=== PATIENT | female | born 1945 | race Caucasian/White ===

== ENCOUNTER → 2017-02-19 | Outpatient (CLI) | payer MEDICARE ==
[~2017-02-19] MED LIST: ALEGRA PO; ASCO-96 PO; AZEL137S4 NAS; CROM13SP3 NAS; CYAN5000 PO; Calcium PO; ESTR42.53 TP; INSU100V8 SQ; LOSA50TA6 PO; METF10002 PO; MOME17SP NAS; MONT10TA9 PO; MULT-6 PO; SIMV20TA3 PO; UBID100C11 PO
[2017-02-19 12:03] LABS: ASPARTATE AMINO TRANSFERASE 16 U/L (15-37); BLOOD UREA NITROGEN 17 mg/dL (7-18)
== END | disposition home or self-care (01) ==
LOC: STAR 10:38
PROVIDERS: ATTEND Obstetrics & Gynecology Female Pelvic Medicine and Reconstructive Surgery
DX: Z01.818 Encounter for other preprocedural examination (principal); N81.10 Cystocele, unspecified; N81.4 Uterovaginal prolapse, unspecified; N39.46 Mixed incontinence; N81.6 Rectocele
CPT/HCPCS: 36415; 71020; 80053; 84703; 85025; 93005

== ENCOUNTER 2017-03-18 05:39 | Day surgery (SDC) | payer MEDICARE ==
[~2017-03-18] VITALS: Ht 165.1 cm; Wt 56.5 kg
[2017-03-18] MEDS ORDERED: LACTATED RINGERS 1,000 ML IV SCH ×2 (06:23→10:08)
[2017-03-18] MEDS ORDERED: SITA100T PO (06:27)
[2017-03-18 06:29] VITALS: BP 123/79
[2017-03-18] MEDS ORDERED: FLUORESCEIN SODIUM 500 MG/5 ML ONE (06:47)
[2017-03-18] MEDS ORDERED: THROMBIN 5,000 UNIT VIAL TP ONE (06:47)
[2017-03-18] MEDS ORDERED: BUPIVACAINE/PF-EPI 0.25% 1:200K ONE (06:47)
[2017-03-18] MEDS ORDERED: SILVER NITRATE STICK TP ONE (06:48)
[2017-03-18] MEDS ORDERED: NEOMY/POLYMYXIN B GU IRR. 1 ML IRRIG ONE ×2 (06:48→08:47)
[2017-03-18] MEDS ORDERED: FENTANYL PF 250 MCG/5ML ONE (07:21)
[2017-03-18] MEDS ORDERED: LABETALOL 5MG/ML, 20ML IV PRN (07:30)
[2017-03-18] MEDS ORDERED: ONDANSETRON 2MG/ML, 2ML IVPush PRN ×2 (07:30→10:30)
[2017-03-18] MEDS ORDERED: HYDROmorphone 1 MG/ML, 1ML IV PRN (07:30)
[2017-03-18] MEDS ORDERED: HYDROcodone/APAP 7.5-325MG/15ML UDC PO PRN (07:30)
[2017-03-18] MEDS ORDERED: PROMETHAZINE 25 MG/ML, 1ML IV PRN (07:30)
[2017-03-18] MEDS ORDERED: OXYcodone 5 MG/5 ML ORAL.SOL UDC PO PRN (07:30)
[2017-03-18] MEDS ORDERED: ACETAMINOPHEN 325 MG TABLET PO PRN (07:30)
[2017-03-18] MEDS ORDERED: hydrALAzine 20 MG/ML, 1ML IV PRN (07:30)
[2017-03-18] MEDS ORDERED: EPHEDRINE 50 MG/ML, 1ML IVPush PRN (07:30)
[2017-03-18] MEDS ORDERED: ONDANSETRON 2MG/ML, 2ML ONE ×2 (07:31→10:26)
[2017-03-18] MEDS ORDERED: PHENYLEPHRINE 10 MG/ML ONE (07:31)
[2017-03-18] MEDS ORDERED: GLYCOPYRROLATE 0.2MG/1ML ONE (07:31)
[2017-03-18] MEDS ORDERED: PROPOFOL 10 MG/ML, 20ML ONE (07:31)
[2017-03-18] MEDS ORDERED: KETOROLAC 30 MG/1 ML ONE (07:31)
[2017-03-18] MEDS ORDERED: CEFOTETAN 2 GM ONE (07:31)
[2017-03-18] MEDS ORDERED: ROCURONIUM 10 MG/ML ONE (07:31)
[2017-03-18] MEDS ORDERED: NEOSTIGMINE 1 MG/ML, 10ML ONE (07:31)
[2017-03-18] MEDS ORDERED: BUPIVACAINE/PF-EPI 0.25% 1:200K INFIL ONE (08:41)
[2017-03-18] MEDS ORDERED: INSULIN SINGLE DOSE, ER SQ-INSULIN ONE (10:10)
[2017-03-18] MEDS ORDERED: OXYcodone 5 MG/5 ML ORAL.SOL UDC ONE (10:26)
[2017-03-18] MEDS ORDERED: FENTANYL PF 100 MCG/2ML ONE (10:27)
[2017-03-18] MEDS ORDERED: IBUPROFEN 600 MG TABLET PO PRN (10:30)
[2017-03-18] MEDS ORDERED: PROMETHAZINE 12.5 MG SUPP PR ONE (10:30)
[2017-03-18] MEDS: FENTANYL PF 100 MCG/2ML IV PRN ×2 (10:30→10:41)
[2017-03-18] MEDS ORDERED: HYDROcodone/APAP 5/325 TABLET PO PRN (10:30)
== END 2017-03-18 16:10 | disposition home or self-care (01) ==
LOC: OUT 05:39
PROVIDERS: ATTEND Obstetrics & Gynecology Female Pelvic Medicine and Reconstructive Surgery
DX: D25.1 Intramural leiomyoma of uterus (principal); N81.4 Uterovaginal prolapse, unspecified; D26.1 Other benign neoplasm of corpus uteri; N83.311 Acquired atrophy of right ovary; N83.312 Acquired atrophy of left ovary; R35.0 Frequency of micturition; R35.1 Nocturia; I10 Essential (primary) hypertension; E11.9 Type 2 diabetes mellitus without complications; E78.5 Hyperlipidemia, unspecified; Z88.6 Allergy status to analgesic agent; Z88.8 Allergy status to other drugs, medicaments and biological substances; Z88.7 Allergy status to serum and vaccine; J45.909 Unspecified asthma, uncomplicated; M85.80 Other specified disorders of bone density and structure, unspecified site; Z98.890 Other specified postprocedural states; Z79.84 Long term (current) use of oral hypoglycemic drugs
CPT/HCPCS: 57288; 57425; 58542; 82962; 88307; C1771; C1781; J1885; J2370; J2405; J2704; J2710; J3010; J3490; J7120; S0074

== ENCOUNTER 2017-03-21 07:32 | Inpatient (IN) | payer MEDICARE ==
[~2017-03-21] VITALS: Ht 167.6 cm; Wt 52.2 kg
[~2017-03-21 07:32] MED LIST changes: +SITA100T PO
[2017-03-21] MEDS ORDERED: SODIUM CHLORIDE 0.9% 1,000 ML IV ONE (07:40)
[2017-03-21] MEDS ORDERED: HYDR-3138 PO (07:51)
[2017-03-21] MEDS ORDERED: NITR100C PO (07:51)
[2017-03-21] MEDS ORDERED: ONDA4TAB7 PO (07:51)
[2017-03-21] MEDS ORDERED: HYDROmorphone 1 MG/ML, 1ML ONE (07:58)
[2017-03-21] MEDS ORDERED: ONDANSETRON 2MG/ML, 2ML ONE (07:59)
[2017-03-21] MEDS ORDERED: SODIUM CHLORIDE FLUSH 10ML SYR IVF ONE (08:00)
[2017-03-21] MEDS ORDERED: ONDANSETRON 2MG/ML, 2ML IVPush ONE (08:00)
[2017-03-21] MEDS ORDERED: SODIUM CHLORIDE 0.9% 1,000ML IVBOLUS ONE (08:00)
[2017-03-21] MEDS ORDERED: HYDROmorphone 1 MG/ML, 1ML IVPush PRN (08:00)
[2017-03-21 08:56] LABS: PATH.CAST-FLAG NOT PRESENT; SPERM-FLAG NOT PRESENT; SRC-FLAG NOT PRESENT; XTAL-FLAG NOT PRESENT; YLC-FLAG NOT PRESENT
[2017-03-21 08:57] LABS: BLOOD UREA NITROGEN 7 mg/dL (7-18)
[2017-03-21 09:02] LABS: ASPARTATE AMINO TRANSFERASE 23 U/L (15-37)
[2017-03-21] MEDS ORDERED: OMNIPAQUE 350 MG/ML, 100ML BOTTLE ONE (10:16)
[2017-03-21] MEDS ORDERED: ONDANSETRON 2MG/ML, 2ML IVPush PRN (11:00)
[2017-03-21] MEDS ORDERED: BISACODYL 10 MG SUPP PR PRN (11:00)
[2017-03-21] MEDS ORDERED: ACETAMINOPHEN 325 MG TABLET PO PRN (11:00)
[2017-03-21] MEDS ORDERED: METOCLOPRAMIDE 5 MG/ML, 2ML IVPush PRN (11:00)
[2017-03-21] MEDS ORDERED: ZOLPIDEM 5MG TABLET PO PRN (11:00)
[2017-03-21] MEDS ORDERED: SODIUM CHLORIDE FLUSH 10ML SYR IVF PRN (11:00)
[2017-03-21] MEDS: ESTRADIOL 0.1 MG TP SCH (11:30)
[2017-03-21] MEDS ORDERED: GLUCAGON 1 MG IM PRN (11:30)
[2017-03-21] MEDS ORDERED: DEXTROSE 50%, 50ML SYRINGE IVPush PRN (11:30)
[2017-03-21] MEDS ORDERED: DEXTROSE 4 GM TAB.CHEW PO PRN (11:30)
[2017-03-21 11:40] VITALS: BP 175/85
[2017-03-21 12:32] VITALS: BP 175/85
[2017-03-21 13:23] LABS: BLOOD UREA NITROGEN 5 mg/dL (7-18)
[2017-03-21] MEDS: POTASSIUM CHLORIDE 20 MEQ in SODIUM CHLORIDE 0.9% 1,000 ML IV SCH ×2 (13:34→22:24)
[2017-03-21] MEDS: INSULIN ASPART 100 UNITS/ML, PEN SQ-INSULIN SCH ×2 (13:35→20:00)
[2017-03-21] MEDS: hydrALAzine 20 MG/ML, 1ML IVPush PRN (13:49)
[2017-03-21 14:01] VITALS: BP 178/77
[2017-03-21] MEDS: PROMETHAZINE 25 MG/ML, 1ML IM PRN ×3 (14:27→20:48)
[2017-03-21 16:58] LABS: POTASSIUM,URINE RANDOM 6 mmol/L
[2017-03-21 19:25] VITALS: BP 160/74
[2017-03-21] MEDS: ENOXAPARIN 40 MG/0.4 ML SQ SCH (20:26)
[2017-03-21] MEDS: LOSARTAN 50MG TABLET PO SCH (20:26)
[2017-03-21] MEDS: SODIUM CHLORIDE FLUSH 10ML SYR IVF SCH (22:24)
[2017-03-21] MEDS: HYDROmorphone 2 MG/ML, 1ML IVPush PRN (22:41)
[2017-03-22 03:01] VITALS: BP 143/69
[2017-03-22] MEDS: HYDROmorphone 2 MG/ML, 1ML IVPush PRN ×2 (05:15→23:47)
[2017-03-22] MEDS: PROMETHAZINE 25 MG/ML, 1ML IM PRN ×2 (05:15→23:48)
[2017-03-22 05:20] LABS: BLOOD UREA NITROGEN 8 mg/dL (7-18)
[2017-03-22] MEDS: INSULIN ASPART 100 UNITS/ML, PEN SQ-INSULIN SCH ×4 (05:47→23:50)
[2017-03-22] MEDS: POTASSIUM CHLORIDE 20 MEQ in SODIUM CHLORIDE 0.9% 1,000 ML IV SCH ×3 (05:50→23:51)
[2017-03-22 08:28] VITALS: BP 149/71
[2017-03-22] MEDS: SODIUM CHLORIDE FLUSH 10ML SYR IVF SCH ×2 (09:00→21:41)
[2017-03-22] MEDS ORDERED: POTASSIUM PHOSPHATE 44 MEQ in SODIUM CHLORIDE 0.9% 500 ML IV ONE (09:00)
[2017-03-22] MEDS: ESTRADIOL 0.1 MG TP SCH (09:00)
[2017-03-22] MEDS: BISACODYL 10 MG SUPP PR SCH (10:51)
[2017-03-22] MEDS: METOCLOPRAMIDE 5 MG/ML, 2ML IVPush SCH ×3 (10:51→23:49)
[2017-03-22 14:14] VITALS: BP 133/91
[2017-03-22 19:34] VITALS: BP 162/76
[2017-03-22] MEDS: ENOXAPARIN 40 MG/0.4 ML SQ SCH (21:42)
[2017-03-22] MEDS: LOSARTAN 50MG TABLET PO SCH (21:42)
[2017-03-23 03:44] VITALS: BP 143/70
[2017-03-23] MEDS: METOCLOPRAMIDE 5 MG/ML, 2ML IVPush SCH ×4 (05:38→23:39)
[2017-03-23 05:42] LABS: BLOOD UREA NITROGEN 11 mg/dL (7-18)
[2017-03-23] MEDS: POTASSIUM CHLORIDE 20 MEQ in SODIUM CHLORIDE 0.9% 1,000 ML IV SCH ×2 (06:13→08:45)
[2017-03-23] MEDS: HYDROmorphone 2 MG/ML, 1ML IVPush PRN ×3 (06:20→21:00)
[2017-03-23] MEDS: INSULIN ASPART 100 UNITS/ML, PEN SQ-INSULIN SCH ×4 (08:41→23:53)
[2017-03-23 08:42] VITALS: BP 152/76
[2017-03-23] MEDS: SODIUM CHLORIDE FLUSH 10ML SYR IVF SCH ×2 (08:45→21:00)
[2017-03-23] MEDS: ESTRADIOL 0.1 MG TP SCH (08:46)
[2017-03-23] MEDS: BISACODYL 10 MG SUPP PR SCH (09:34)
[2017-03-23] MEDS: LACTATED RINGERS 1,000 ML IV SCH ×2 (10:26→21:00)
[2017-03-23 14:02] VITALS: BP 160/75
[2017-03-23 18:23] VITALS: BP 164/70
[2017-03-23] MEDS: LOSARTAN 50MG TABLET PO SCH (21:00)
[2017-03-23] MEDS: ENOXAPARIN 40 MG/0.4 ML SQ SCH (21:09)
[2017-03-23] MEDS: PROMETHAZINE 25 MG/ML, 1ML IM PRN (21:09)
[2017-03-24 02:07] VITALS: BP 152/84
[2017-03-24] MEDS: HYDROmorphone 2 MG/ML, 1ML IVPush PRN ×3 (03:47→09:55)
[2017-03-24] MEDS: LACTATED RINGERS 1,000 ML IV SCH ×2 (05:26→22:14)
[2017-03-24] MEDS: INSULIN ASPART 100 UNITS/ML, PEN SQ-INSULIN SCH ×3 (05:27→18:13)
[2017-03-24] MEDS: METOCLOPRAMIDE 5 MG/ML, 2ML IVPush SCH (05:27)
[2017-03-24 05:56] LABS: BLOOD UREA NITROGEN 11 mg/dL (7-18)
[2017-03-24] MEDS: ESTRADIOL 0.1 MG TP SCH (09:00)
[2017-03-24] MEDS: PROMETHAZINE 25 MG/ML, 1ML IM PRN (09:54)
[2017-03-24] MEDS: SODIUM CHLORIDE FLUSH 10ML SYR IVF SCH (09:55)
[2017-03-24] MEDS: BISACODYL 10 MG SUPP PR SCH (09:55)
[2017-03-24 10:03] VITALS: BP 162/73
[2017-03-24] MEDS ORDERED: FENTANYL PF 250 MCG/5ML ONE (13:08)
[2017-03-24] MEDS ORDERED: MIDAZOLAM 1 MG/ML, 2ML ONE (13:08)
[2017-03-24] MEDS ORDERED: SUCCINYLCHOLINE 20 MG/ML, 10ML ONE (13:26)
[2017-03-24] MEDS ORDERED: NEOSTIGMINE 1 MG/ML, 10ML ONE (13:26)
[2017-03-24] MEDS ORDERED: KETOROLAC 30 MG/1 ML ONE (13:26)
[2017-03-24] MEDS ORDERED: ROCURONIUM 10 MG/ML ONE (13:26)
[2017-03-24] MEDS ORDERED: DEXAMETHASONE 4 MG/ML, 1ML ONE (13:26)
[2017-03-24] MEDS ORDERED: CEFOTETAN 1 GM ONE (13:26)
[2017-03-24] MEDS ORDERED: PROPOFOL 10 MG/ML, 20ML ONE (13:26)
[2017-03-24] MEDS ORDERED: GLYCOPYRROLATE 0.2MG/1ML ONE (13:26)
[2017-03-24] MEDS ORDERED: OXYMETAZOLINE NASAL SPRAY 0.05%, 15ML ONE (13:46)
[2017-03-24] MEDS ORDERED: HYDROmorphone 1 MG/ML, 1ML ONE ×2 (13:56→14:57)
[2017-03-24] MEDS ORDERED: FENTANYL PF 100 MCG/2ML ONE ×2 (13:56→14:57)
[2017-03-24] MEDS ORDERED: ROPIvacaine/PF 0.2%, 20 ML ONE (14:12)
[2017-03-24] MEDS ORDERED: ALBUTEROL SULFATE 2.5 MG/3 ML NPPB PRN (15:00)
[2017-03-24] MEDS ORDERED: ACETAMINOPHEN 325 MG TABLET PO PRN (15:00)
[2017-03-24] MEDS ORDERED: PROMETHAZINE 25 MG/ML, 1ML IV PRN (15:00)
[2017-03-24] MEDS ORDERED: METOPROLOL 1 MG/ML, 5ML IV PRN (15:00)
[2017-03-24] MEDS ORDERED: FENTANYL PF 100 MCG/2ML IV PRN (15:00)
[2017-03-24] MEDS ORDERED: hydrALAzine 20 MG/ML, 1ML IV PRN (15:00)
[2017-03-24] MEDS ORDERED: HYDROmorphone 1 MG/ML, 1ML IV PRN (15:00)
[2017-03-24] MEDS ORDERED: OXYcodone 5 MG/5 ML ORAL.SOL UDC PO PRN (15:00)
[2017-03-24 16:10] VITALS: BP 146/71
[2017-03-24 16:15] VITALS: BP 146/71
[2017-03-24 19:13] VITALS: BP 126/64
[2017-03-24] MEDS ORDERED: DEXTROSE 4 GM TAB.CHEW PO PRN (22:00)
[2017-03-24] MEDS ORDERED: DEXTROSE 50%, 50ML SYRINGE IVPush PRN (22:00)
[2017-03-24] MEDS ORDERED: GLUCAGON 1 MG IM PRN (22:00)
[2017-03-24] MEDS: KETOROLAC 30 MG/1 ML IV SCH (22:14)
[2017-03-24] MEDS: ENOXAPARIN 40 MG/0.4 ML SQ SCH (22:15)
[2017-03-25] VITALS (7 sets, daily range): BP systolic 101–124; BP diastolic 55–74
[2017-03-25] MEDS: KETOROLAC 30 MG/1 ML IV SCH ×4 (04:01→23:54)
[2017-03-25] MEDS: INSULIN ASPART 100 UNITS/ML, PEN SQ-INSULIN SCH ×5 (06:00→23:55)
[2017-03-25 06:06] LABS: BLOOD UREA NITROGEN 17 mg/dL (7-18)
[2017-03-25 06:09] LABS: ASPARTATE AMINO TRANSFERASE 13 U/L (15-37)
[2017-03-25] MEDS ORDERED: SODIUM CHLORIDE 0.9% 500 ML IV SCH ×2 (07:10→07:30)
[2017-03-25] MEDS ORDERED: PHENOL THROAT SPRAY BOTTLE MM PRN (08:00)
[2017-03-25] MEDS ORDERED: BENZOCAINE AEROSOL SPRAY 20%, 60ML TP ONE (08:00)
[2017-03-25] MEDS: SODIUM CHLORIDE FLUSH 10ML SYR IVF SCH ×2 (09:14→20:47)
[2017-03-25] MEDS: ESTRADIOL 0.1 MG TP SCH (09:15)
[2017-03-25] MEDS: LACTATED RINGERS 1,000 ML IV SCH ×3 (09:42→20:46)
[2017-03-25] MEDS: BISACODYL 10 MG SUPP PR SCH (09:43)
[2017-03-25] MEDS ORDERED: SODIUM CHLORIDE 0.9%, 500ML IVBOLUS ONE (18:00)
[2017-03-25] MEDS: ENOXAPARIN 40 MG/0.4 ML SQ SCH (20:46)
[2017-03-25] MEDS: PROMETHAZINE 25 MG/ML, 1ML IM PRN (20:47)
[2017-03-26 04:10] VITALS: BP 136/68
[2017-03-26 06:13] LABS: BLOOD UREA NITROGEN 18 mg/dL (7-18)
[2017-03-26] MEDS: KETOROLAC 30 MG/1 ML IV SCH ×3 (06:47→17:55)
[2017-03-26] MEDS: LACTATED RINGERS 1,000 ML IV SCH ×2 (06:54→15:26)
[2017-03-26] MEDS: INSULIN ASPART 100 UNITS/ML, PEN SQ-INSULIN SCH ×3 (06:54→17:58)
[2017-03-26 08:17] VITALS: BP 118/67
[2017-03-26] MEDS: ESTRADIOL 0.1 MG TP SCH (08:42)
[2017-03-26] MEDS: SODIUM CHLORIDE FLUSH 10ML SYR IVF SCH ×2 (08:53→20:17)
[2017-03-26] MEDS: METOCLOPRAMIDE 5 MG/ML, 2ML IVPush SCH ×3 (08:53→20:17)
[2017-03-26] MEDS: BISACODYL 10 MG SUPP PR SCH (08:53)
[2017-03-26 12:24] VITALS: BP 124/59
[2017-03-26] MEDS: ENOXAPARIN 40 MG/0.4 ML SQ SCH (20:16)
[2017-03-26 20:20] VITALS: BP 136/67
[2017-03-27] MEDS: KETOROLAC 30 MG/1 ML IV SCH ×4 (00:11→17:19)
[2017-03-27] MEDS: INSULIN ASPART 100 UNITS/ML, PEN SQ-INSULIN SCH ×4 (00:14→18:00)
[2017-03-27] MEDS: LACTATED RINGERS 1,000 ML IV SCH ×3 (00:25→17:19)
[2017-03-27] MEDS: PROMETHAZINE 25 MG/ML, 1ML IM PRN (00:41)
[2017-03-27] MEDS: METOCLOPRAMIDE 5 MG/ML, 2ML IVPush SCH ×4 (02:30→21:06)
[2017-03-27 02:39] VITALS: BP 124/66
[2017-03-27 07:49] VITALS: BP 139/53
[2017-03-27] MEDS: SODIUM CHLORIDE FLUSH 10ML SYR IVF SCH ×2 (09:00→20:44)
[2017-03-27] MEDS: ESTRADIOL 0.1 MG TP SCH (09:00)
[2017-03-27] MEDS: BISACODYL 10 MG SUPP PR SCH (10:31)
[2017-03-27 12:58] VITALS: BP 157/71
[2017-03-27 20:20] VITALS: BP 148/66
[2017-03-27] MEDS: DIPHENHYDRAMINE 50 MG/ML, 1ML IVPush PRN (20:44)
[2017-03-27] MEDS: ENOXAPARIN 40 MG/0.4 ML SQ SCH (20:44)
[2017-03-28] MEDS: INSULIN ASPART 100 UNITS/ML, PEN SQ-INSULIN SCH ×5 (00:29→23:23)
[2017-03-28 03:09] VITALS: BP 158/70
[2017-03-28] MEDS: LACTATED RINGERS 1,000 ML IV SCH ×2 (04:47→14:54)
[2017-03-28] MEDS: METOCLOPRAMIDE 5 MG/ML, 2ML IVPush SCH ×4 (04:47→23:11)
[2017-03-28 08:09] LABS: ASPARTATE AMINO TRANSFERASE 18 U/L (15-37); BLOOD UREA NITROGEN 7 mg/dL (7-18)
[2017-03-28 08:30] VITALS: BP 156/76
[2017-03-28] MEDS: ESTRADIOL 0.1 MG TP SCH (09:00)
[2017-03-28] MEDS: SODIUM CHLORIDE FLUSH 10ML SYR IVF SCH ×2 (09:47→21:00)
[2017-03-28] MEDS: BISACODYL 10 MG SUPP PR SCH (09:47)
[2017-03-28 14:30] VITALS: BP 169/76
[2017-03-28 20:16] VITALS: BP 176/74
[2017-03-28] MEDS: ENOXAPARIN 40 MG/0.4 ML SQ SCH (23:10)
[2017-03-29] MEDS: LACTATED RINGERS 1,000 ML IV SCH (01:19)
[2017-03-29 01:25] VITALS: BP 168/80
[2017-03-29] MEDS: METOCLOPRAMIDE 5 MG/ML, 2ML IVPush SCH ×4 (05:33→23:41)
[2017-03-29] MEDS: INSULIN ASPART 100 UNITS/ML, PEN SQ-INSULIN SCH ×4 (06:00→21:00)
[2017-03-29 06:34] VITALS: BP 171/88
[2017-03-29] MEDS: ESTRADIOL 0.1 MG TP SCH (09:00)
[2017-03-29] MEDS: SODIUM CHLORIDE FLUSH 10ML SYR IVF SCH ×2 (09:00→21:50)
[2017-03-29] MEDS: BISACODYL 10 MG SUPP PR SCH (10:02)
[2017-03-29 12:25] VITALS: BP 157/76
[2017-03-29] MEDS: OXYcodone IR 5MG TABLET PO PRN ×2 (15:09→21:51)
[2017-03-29] MEDS: PROMETHAZINE 25 MG/ML, 1ML IM PRN ×2 (17:11→22:01)
[2017-03-29] MEDS: HYDROmorphone 2 MG/ML, 1ML IVPush PRN (17:49)
[2017-03-29 20:19] VITALS: BP 165/67
[2017-03-29] MEDS: ENOXAPARIN 40 MG/0.4 ML SQ SCH (21:51)
[2017-03-30] MEDS: OXYcodone IR 5MG TABLET PO PRN ×5 (02:46→20:42)
[2017-03-30] MEDS: PROMETHAZINE 25 MG/ML, 1ML IM PRN ×4 (03:05→20:42)
[2017-03-30 03:51] VITALS: BP 166/88
[2017-03-30] MEDS: METOCLOPRAMIDE 5 MG/ML, 2ML IVPush SCH ×4 (05:05→23:20)
[2017-03-30 06:50] VITALS: BP 165/74
[2017-03-30] MEDS: INSULIN ASPART 100 UNITS/ML, PEN SQ-INSULIN SCH ×4 (08:28→23:32)
[2017-03-30] MEDS: ESTRADIOL 0.1 MG TP SCH (09:00)
[2017-03-30] MEDS: SODIUM CHLORIDE FLUSH 10ML SYR IVF SCH ×2 (09:00→20:44)
[2017-03-30 13:09] VITALS: BP 166/72
[2017-03-30] MEDS: BISACODYL 10 MG SUPP PR SCH (15:42)
[2017-03-30 18:57] VITALS: BP 162/62
[2017-03-30] MEDS: ENOXAPARIN 40 MG/0.4 ML SQ SCH (20:42)
[2017-03-31 03:19] VITALS: BP 162/78
[2017-03-31] MEDS: INSULIN ASPART 100 UNITS/ML, PEN SQ-INSULIN SCH ×4 (05:00→23:02)
[2017-03-31] MEDS: METOCLOPRAMIDE 5 MG/ML, 2ML IVPush SCH ×4 (05:38→22:55)
[2017-03-31] MEDS: PROMETHAZINE 25 MG/ML, 1ML IM PRN ×3 (05:39→20:19)
[2017-03-31] MEDS: OXYcodone IR 5MG TABLET PO PRN (05:39)
[2017-03-31 06:58] VITALS: BP 167/69
[2017-03-31] MEDS: ESTRADIOL 0.1 MG TP SCH (07:20)
[2017-03-31] MEDS ORDERED: D5%-0.9% NACL+KCL 20MEQ 1,000 ML IV SCH (07:30)
[2017-03-31 08:23] LABS: BLOOD UREA NITROGEN 6 mg/dL (7-18)
[2017-03-31 08:26] LABS: ASPARTATE AMINO TRANSFERASE 37 U/L (15-37)
[2017-03-31] MEDS: SODIUM CHLORIDE FLUSH 10ML SYR IVF SCH ×3 (09:30→22:42)
[2017-03-31] MEDS: NS + 20MEQ KCL 1,000 ML IV SCH (10:07)
[2017-03-31] MEDS: BISACODYL 10 MG SUPP PR SCH (10:12)
[2017-03-31] MEDS ORDERED: POTASSIUM CHLORIDE 40 MEQ in SODIUM CHLORIDE 0.9% 500 ML IV ONE (11:30)
[2017-03-31] MEDS: ENALAPRIL 5MG TABLET PO SCH ×3 (12:51→22:45)
[2017-03-31 13:37] VITALS: BP 155/72
[2017-03-31] MEDS: LOSARTAN 50MG TABLET PO SCH (14:17)
[2017-03-31 19:56] VITALS: BP 165/83
[2017-03-31] MEDS: ENOXAPARIN 40 MG/0.4 ML SQ SCH (20:19)
[2017-03-31] MEDS: DIPHENHYDRAMINE 50 MG/ML, 1ML IVPush PRN (22:42)
[2017-04-01] MEDS: HYDROmorphone 2 MG/ML, 1ML IVPush PRN (00:56)
[2017-04-01 05:01] VITALS: BP 160/68
[2017-04-01 05:40] LABS: BLOOD UREA NITROGEN 7 mg/dL (7-18)
[2017-04-01] MEDS: METOCLOPRAMIDE 5 MG/ML, 2ML IVPush SCH ×4 (06:30→18:22)
[2017-04-01] MEDS: INSULIN ASPART 100 UNITS/ML, PEN SQ-INSULIN SCH ×4 (06:40→20:44)
[2017-04-01] MEDS: NS + 20MEQ KCL 1,000 ML IV SCH ×2 (07:35→13:25)
[2017-04-01 08:28] VITALS: BP 155/76
[2017-04-01] MEDS: SODIUM CHLORIDE FLUSH 10ML SYR IVF SCH ×2 (09:00→19:59)
[2017-04-01] MEDS: ESTRADIOL 0.1 MG TP SCH (09:00)
[2017-04-01] MEDS: BISACODYL 10 MG SUPP PR SCH (09:00)
[2017-04-01] MEDS: LOSARTAN 50MG TABLET PO SCH ×2 (09:00→13:26)
[2017-04-01 13:13] VITALS: BP_SYST 170; BP_SYST 172; BP_DIAS 78; BP_DIAS 79
[2017-04-01 18:52] VITALS: BP 177/71
[2017-04-01] MEDS: DIPHENHYDRAMINE 50 MG/ML, 1ML IVPush PRN (19:59)
[2017-04-01] MEDS: ENALAPRIL 5MG TABLET PO SCH ×2 (20:00→20:09)
[2017-04-01] MEDS: ENOXAPARIN 40 MG/0.4 ML SQ SCH (20:00)
[2017-04-01] MEDS: hydrALAzine 20 MG/ML, 1ML IVPush PRN (20:21)
[2017-04-02] MEDS: METOCLOPRAMIDE 5 MG/ML, 2ML IVPush SCH ×4 (00:05→18:33)
[2017-04-02] MEDS: NS + 20MEQ KCL 1,000 ML IV SCH ×2 (01:02→03:22)
[2017-04-02 01:33] VITALS: BP 152/77
[2017-04-02] MEDS: INSULIN ASPART 100 UNITS/ML, PEN SQ-INSULIN SCH ×4 (03:40→23:09)
[2017-04-02] MEDS: PROMETHAZINE 25 MG SUPP PR PRN ×2 (05:46→23:09)
[2017-04-02] MEDS ORDERED: TPN PER PHARMACY MC PRN (07:00)
[2017-04-02 07:01] VITALS: BP 164/70
[2017-04-02] MEDS: SODIUM CHLORIDE FLUSH 10ML SYR IVF SCH ×2 (07:18→19:52)
[2017-04-02] MEDS: ESTRADIOL 0.1 MG TP SCH (07:19)
[2017-04-02 08:14] LABS: ASPARTATE AMINO TRANSFERASE 26 U/L (15-37); BLOOD UREA NITROGEN 8 mg/dL (7-18)
[2017-04-02] MEDS: LOSARTAN 50MG TABLET PO SCH (08:49)
[2017-04-02] MEDS: BISACODYL 10 MG SUPP PR SCH (08:50)
[2017-04-02] MEDS: ENALAPRIL 5MG TABLET PO SCH ×2 (08:51→19:53)
[2017-04-02 12:42] VITALS: BP 164/74
[2017-04-02] MEDS ORDERED: SODIUM CHLORIDE 0.9% 1,000 ML IV SCH (14:10)
[2017-04-02] MEDS ORDERED: AMINO ACID 10% IV SCH (17:00)
[2017-04-02] MEDS ORDERED: FAT EMULSIONS IV SCH (17:00)
[2017-04-02] MEDS ORDERED: [UNRECOGNIZED DRUG - OTHER] IV SCH (17:00)
[2017-04-02] MEDS ORDERED: FILTER, DISP 1.2 MICRON FOR TPN/PVN IV PRN (17:00)
[2017-04-02] MEDS ORDERED: DEXTROSE 10% 500 ML IV PRN (17:00)
[2017-04-02] MEDS ORDERED: DEXTROSE 70% IV SCH (17:00)
[2017-04-02 19:39] VITALS: BP 177/73
[2017-04-02] MEDS: ENOXAPARIN 40 MG/0.4 ML SQ SCH (19:53)
[2017-04-02] MEDS: hydrALAzine 20 MG/ML, 1ML IVPush PRN (19:53)
[2017-04-02] MEDS: DIPHENHYDRAMINE 50 MG/ML, 1ML IVPush PRN (23:09)
[2017-04-03] MEDS: METOCLOPRAMIDE 5 MG/ML, 2ML IVPush SCH ×4 (00:41→18:30)
[2017-04-03 01:13] VITALS: BP 151/67
[2017-04-03] MEDS: INSULIN ASPART 100 UNITS/ML, PEN SQ-INSULIN SCH ×3 (03:00→09:00)
[2017-04-03 05:13] LABS: BLOOD UREA NITROGEN 9 mg/dL (7-18)
[2017-04-03 08:11] VITALS: BP 153/71
[2017-04-03] MEDS: ENALAPRIL 5MG TABLET PO SCH ×2 (09:00→21:00)
[2017-04-03] MEDS: ESTRADIOL 0.1 MG TP SCH (09:00)
[2017-04-03] MEDS: SODIUM CHLORIDE FLUSH 10ML SYR IVF SCH ×2 (09:36→22:53)
[2017-04-03] MEDS: LOSARTAN 50MG TABLET PO SCH (09:37)
[2017-04-03] MEDS ORDERED: INSULIN REGULAR, HUMAN 100 UNITS/ML, 3ML HIGH DOSE SS SQ-INSULIN SCH (11:00)
[2017-04-03] MEDS: INSULIN ASPART 100 UNITS/ML, 3ML PEN HIGH DOSE SS SQ-INSULIN SCH ×3 (11:08→22:56)
[2017-04-03] MEDS: PIPERACILLIN/TAZO/PMX 3.375GM 50 ML IV SCH ×2 (14:27→22:53)
[2017-04-03] MEDS ORDERED: PIPERACILLIN/TAZO 3.375 GM in SODIUM CHLORIDE 0.9% 50 ML IV SCH (14:30)
[2017-04-03 14:57] VITALS: BP 175/75
[2017-04-03] MEDS ORDERED: INSULIN ASPART 100 UNITS/ML, PEN SQ-INSULIN SCH (16:00)
[2017-04-03] MEDS ORDERED: DEXTROSE 70% IV SCH ×2 (17:00)
[2017-04-03] MEDS ORDERED: [UNRECOGNIZED DRUG - OTHER] IV SCH ×2 (17:00)
[2017-04-03] MEDS ORDERED: FAT EMULSIONS IV SCH ×2 (17:00)
[2017-04-03] MEDS ORDERED: AMINO ACID 10% IV SCH ×2 (17:00)
[2017-04-03] MEDS: FILTER, DISP 1.2 MICRON FOR TPN/PVN IV PRN (18:11)
[2017-04-03 19:48] VITALS: BP 146/68
[2017-04-03] MEDS: DIPHENHYDRAMINE 50 MG/ML, 1ML IVPush PRN (21:18)
[2017-04-03] MEDS: ENOXAPARIN 40 MG/0.4 ML SQ SCH (21:18)
[2017-04-04] MEDS: METOCLOPRAMIDE 5 MG/ML, 2ML IVPush SCH ×5 (00:30→23:51)
[2017-04-04 03:57] VITALS: BP 133/70
[2017-04-04] MEDS: INSULIN ASPART 100 UNITS/ML, 3ML PEN HIGH DOSE SS SQ-INSULIN SCH ×4 (06:11→22:52)
[2017-04-04] MEDS: PIPERACILLIN/TAZO/PMX 3.375GM 50 ML IV SCH ×3 (06:37→22:48)
[2017-04-04 07:10] LABS: BLOOD UREA NITROGEN 13 mg/dL (7-18)
[2017-04-04 07:12] VITALS: BP 131/65
[2017-04-04] MEDS: SODIUM CHLORIDE FLUSH 10ML SYR IVF SCH ×2 (08:05→21:47)
[2017-04-04] MEDS: LOSARTAN 50MG TABLET PO SCH (08:05)
[2017-04-04] MEDS: ENALAPRIL 5MG TABLET PO SCH ×2 (08:05→21:47)
[2017-04-04] MEDS: ESTRADIOL 0.1 MG TP SCH (08:05)
[2017-04-04 14:10] VITALS: BP 122/66
[2017-04-04] MEDS ORDERED: [UNRECOGNIZED DRUG - OTHER] IV SCH (17:00)
[2017-04-04] MEDS ORDERED: DEXTROSE 70% IV SCH (17:00)
[2017-04-04] MEDS ORDERED: AMINO ACID 10% IV SCH (17:00)
[2017-04-04] MEDS ORDERED: FAT EMULSIONS IV SCH (17:00)
[2017-04-04] MEDS: FILTER, DISP 1.2 MICRON FOR TPN/PVN IV PRN (17:24)
[2017-04-04 19:57] VITALS: BP_SYST 144; BP_SYST 160; BP_DIAS 70
[2017-04-04] MEDS: DIPHENHYDRAMINE 50 MG/ML, 1ML IVPush PRN (21:46)
[2017-04-04] MEDS: ENOXAPARIN 40 MG/0.4 ML SQ SCH (21:46)
[2017-04-05 02:05] VITALS: BP 156/77
[2017-04-05 05:12] LABS: BLOOD UREA NITROGEN 10 mg/dL (7-18)
[2017-04-05] MEDS: INSULIN ASPART 100 UNITS/ML, 3ML PEN HIGH DOSE SS SQ-INSULIN SCH ×4 (05:27→22:52)
[2017-04-05] MEDS: METOCLOPRAMIDE 5 MG/ML, 2ML IVPush SCH ×3 (05:31→17:19)
[2017-04-05] MEDS: PIPERACILLIN/TAZO/PMX 3.375GM 50 ML IV SCH ×3 (06:38→22:53)
[2017-04-05 06:52] VITALS: BP 139/73
[2017-04-05] MEDS: ESTRADIOL 0.1 MG TP SCH (07:23)
[2017-04-05] MEDS: ENALAPRIL 5MG TABLET PO SCH ×2 (07:23→20:07)
[2017-04-05] MEDS: SODIUM CHLORIDE FLUSH 10ML SYR IVF SCH ×2 (07:23→20:07)
[2017-04-05] MEDS: LOSARTAN 50MG TABLET PO SCH (08:11)
[2017-04-05 14:10] VITALS: BP 158/77
[2017-04-05] MEDS ORDERED: DEXTROSE 70% IV SCH (17:00)
[2017-04-05] MEDS ORDERED: [UNRECOGNIZED DRUG - OTHER] IV SCH (17:00)
[2017-04-05] MEDS ORDERED: AMINO ACID 10% IV SCH (17:00)
[2017-04-05] MEDS ORDERED: FAT EMULSIONS IV SCH (17:00)
[2017-04-05] MEDS: FILTER, DISP 1.2 MICRON FOR TPN/PVN IV PRN (17:24)
[2017-04-05 18:43] VITALS: BP 156/93
[2017-04-05 19:25] VITALS: BP 162/74
[2017-04-05 20:06] VITALS: BP 152/67
[2017-04-05] MEDS: DIPHENHYDRAMINE 50 MG/ML, 1ML IVPush PRN (20:07)
[2017-04-05] MEDS: ENOXAPARIN 40 MG/0.4 ML SQ SCH (21:40)
[2017-04-06] MEDS: METOCLOPRAMIDE 5 MG/ML, 2ML IVPush SCH ×4 (00:23→17:44)
[2017-04-06 02:27] VITALS: BP 157/68
[2017-04-06] MEDS: INSULIN ASPART 100 UNITS/ML, 3ML PEN HIGH DOSE SS SQ-INSULIN SCH ×4 (04:44→22:41)
[2017-04-06 05:06] LABS: BLOOD UREA NITROGEN 10 mg/dL (7-18)
[2017-04-06] MEDS: PIPERACILLIN/TAZO/PMX 3.375GM 50 ML IV SCH ×3 (06:11→22:37)
[2017-04-06 07:15] VITALS: BP 127/74
[2017-04-06] MEDS: ENALAPRIL 5MG TABLET PO SCH ×2 (10:01→20:28)
[2017-04-06] MEDS: ESTRADIOL 0.1 MG TP SCH (10:01)
[2017-04-06] MEDS: SODIUM CHLORIDE FLUSH 10ML SYR IVF SCH ×2 (10:01→20:33)
[2017-04-06] MEDS: LOSARTAN 50MG TABLET PO SCH (10:13)
[2017-04-06 14:31] VITALS: BP 166/70
[2017-04-06] MEDS ORDERED: DEXTROSE 70% IV SCH (17:00)
[2017-04-06] MEDS ORDERED: [UNRECOGNIZED DRUG - OTHER] IV SCH (17:00)
[2017-04-06] MEDS ORDERED: FAT EMULSIONS IV SCH (17:00)
[2017-04-06] MEDS ORDERED: AMINO ACID 10% IV SCH (17:00)
[2017-04-06] MEDS: FILTER, DISP 1.2 MICRON FOR TPN/PVN IV PRN (17:44)
[2017-04-06 20:29] VITALS: BP 161/77
[2017-04-06] MEDS: ENOXAPARIN 40 MG/0.4 ML SQ SCH (20:33)
[2017-04-07] MEDS: METOCLOPRAMIDE 5 MG/ML, 2ML IVPush SCH ×5 (00:16→23:30)
[2017-04-07 04:51] VITALS: BP 146/63
[2017-04-07] MEDS: INSULIN ASPART 100 UNITS/ML, 3ML PEN HIGH DOSE SS SQ-INSULIN SCH ×4 (04:55→23:36)
[2017-04-07 05:25] LABS: BLOOD UREA NITROGEN 12 mg/dL (7-18)
[2017-04-07] MEDS: PIPERACILLIN/TAZO/PMX 3.375GM 50 ML IV SCH ×3 (06:09→22:42)
[2017-04-07 07:20] VITALS: BP 122/69
[2017-04-07] MEDS: ESTRADIOL 0.1 MG TP SCH (07:47)
[2017-04-07] MEDS: ENALAPRIL 5MG TABLET PO SCH ×2 (07:47→20:45)
[2017-04-07] MEDS: LOSARTAN 50MG TABLET PO SCH (09:35)
[2017-04-07] MEDS: SODIUM CHLORIDE FLUSH 10ML SYR IVF SCH ×2 (09:36→20:47)
[2017-04-07 13:56] VITALS: BP 146/75
[2017-04-07] MEDS ORDERED: AMINO ACID 10% IV SCH (17:00)
[2017-04-07] MEDS ORDERED: DEXTROSE 70% IV SCH (17:00)
[2017-04-07] MEDS ORDERED: FAT EMULSIONS IV SCH (17:00)
[2017-04-07] MEDS ORDERED: [UNRECOGNIZED DRUG - OTHER] IV SCH (17:00)
[2017-04-07] MEDS: FILTER, DISP 1.2 MICRON FOR TPN/PVN IV PRN (17:07)
[2017-04-07 20:05] VITALS: BP 152/57
[2017-04-07] MEDS: ENOXAPARIN 40 MG/0.4 ML SQ SCH (20:47)
[2017-04-08 01:37] VITALS: BP 141/69
[2017-04-08] MEDS: INSULIN ASPART 100 UNITS/ML, 3ML PEN HIGH DOSE SS SQ-INSULIN SCH (05:51)
[2017-04-08 06:36] LABS: BLOOD UREA NITROGEN 15 mg/dL (7-18)
[2017-04-08 06:41] LABS: ASPARTATE AMINO TRANSFERASE 12 U/L (15-37)
[2017-04-08 08:05] VITALS: BP 134/72
[2017-04-08] MEDS ORDERED: TPN PER PHARMACY MC PRN (08:30)
[2017-04-08] MEDS: ENALAPRIL 5MG TABLET PO SCH ×2 (08:52→21:36)
[2017-04-08] MEDS: SODIUM CHLORIDE FLUSH 10ML SYR IVF SCH ×2 (08:52→21:42)
[2017-04-08] MEDS: LOSARTAN 50MG TABLET PO SCH (08:52)
[2017-04-08] MEDS: ESTRADIOL 0.1 MG TP SCH (08:52)
[2017-04-08] MEDS: INSULIN ASPART 100 UNITS/ML, PEN SQ-INSULIN SCH ×3 (11:21→21:35)
[2017-04-08 13:29] VITALS: BP 130/72
[2017-04-08 19:57] VITALS: BP 159/73
[2017-04-08] MEDS: ENOXAPARIN 40 MG/0.4 ML SQ SCH (21:36)
[2017-04-09 03:18] VITALS: BP 132/62
[2017-04-09 08:06] VITALS: BP 103/61
[2017-04-09] MEDS: LOSARTAN 50MG TABLET PO SCH (08:23)
[2017-04-09] MEDS: INSULIN ASPART 100 UNITS/ML, PEN SQ-INSULIN SCH (08:23)
[2017-04-09] MEDS: ESTRADIOL 0.1 MG TP SCH (08:24)
[2017-04-09] MEDS: ENALAPRIL 5MG TABLET PO SCH (08:24)
[2017-04-09 08:28] VITALS: BP 90/56
[2017-04-09 08:31] VITALS: BP 99/63
== END 2017-04-09 12:20 | disposition home or self-care (01) | DRG 335 ==
LOC: ED 07:48 → SUATTDRO 10:55 → 4NOR 10:56 → UNDODISIN 04-09 11:35 → DCLOUNGE 04-09 11:35
PROC: 0T9B70Z Drainage of Bladder with Drainage Device, Via Natural or Artificial Opening (ICD-10-PCS; 2017-03-21)
PROC: 0DN80ZZ Release Small Intestine, Open Approach (ICD-10-PCS; 2017-03-24)
PROC: 3E0M05Z Introduction of Adhesion Barrier into Peritoneal Cavity, Open Approach (ICD-10-PCS; principal; 2017-03-24 13:00)
PROC: 02HV33Z Insertion of Infusion Device into Superior Vena Cava, Percutaneous Approach (ICD-10-PCS; 2017-04-02)
PROC: B548ZZA Ultrasonography of Superior Vena Cava, Guidance (ICD-10-PCS; 2017-04-02)
DX: K56.60 Unspecified intestinal obstruction (principal); E43 Unspecified severe protein-calorie malnutrition; E87.1 Hypo-osmolality and hyponatremia; R65.10 Systemic inflammatory response syndrome (SIRS) of non-infectious origin without acute organ dysfunction; K91.89 Other postprocedural complications and disorders of digestive system; Z68.1 Body mass index [BMI] 19.9 or less, adult; K56.7 Ileus, unspecified; E86.0 Dehydration; I11.9 Hypertensive heart disease without heart failure; E78.5 Hyperlipidemia, unspecified; D47.3 Essential (hemorrhagic) thrombocythemia; D64.9 Anemia, unspecified; E11.9 Type 2 diabetes mellitus without complications; K21.9 Gastro-esophageal reflux disease without esophagitis; N81.4 Uterovaginal prolapse, unspecified; J02.9 Acute pharyngitis, unspecified; R31.9 Hematuria, unspecified; Z80.0 Family history of malignant neoplasm of digestive organs; Z90.710 Acquired absence of both cervix and uterus; Z88.8 Allergy status to other drugs, medicaments and biological substances; Z88.7 Allergy status to serum and vaccine; Z79.84 Long term (current) use of oral hypoglycemic drugs; Z79.899 Other long term (current) drug therapy
CPT/HCPCS: 36415; 36569; 71010; 74000; 74022; 74177; 74245; 74270; 76937; 77001; 80048; 80053; 81001; 82436; 82962; 83605; 83690; 83735; 83930; 83935; 84100; 84133; 84134; 84295; 84300; 84478; 85025; 87040; 96374; 96375; J0610; J1100; J1170; J1650; J1815; J1885; J2250; J2270; J2405; J2543; J2550; J2704; J2710; J2795; J3010; J3475; J3480; J3490; Q9967; C1751; C1765; J0330; J0360; J1200; J2765; J3420; J7030; J7040; J7120; S0074

== ENCOUNTER 2020-03-24 11:02 | Outpatient (CLI) | payer MEDICARE ==
[~2020-03-24 11:02] MED LIST changes: -CROM13SP3 NAS; +CROM13SP5 NAS; -CYAN5000 PO; +CYAN50002 PO; +HYDR-3237 PO; +LOSA50TA14 PO; -LOSA50TA6 PO; +MONT10TA11 PO; -MONT10TA9 PO; +NITR100C PO; +ONDA4TAB7 PO; +SIMV20TA19 PO; -SIMV20TA3 PO; -UBID100C11 PO; +UBID100C41 PO
== END 2020-03-24 23:59 | disposition home or self-care (01) ==
LOC: CFH 11:02 → EDSTATUS 11:15 → CFH 23:59
PROVIDERS: ATTEND Internal Medicine
DX: Z12.31 Encounter for screening mammogram for malignant neoplasm of breast (principal)
CPT/HCPCS: 77063; 77067